=== PATIENT | female | born 1965 | race Caucasian/White ===

== ENCOUNTER 2017-10-30 16:31 | Outpatient (CLI) | payer BC ==
--- NOTE | 2017-10-30 17:22 | RAD ---
LEFT SHOULDER THREE VIEWS: 10/30/17 HISTORY: Shoulder pain. FINDINGS/IMPRESSION: Minimal arthritic changes of the AC joint. There is no acute findings. POS: [facility]
== END 2017-10-30 16:32 | disposition home or self-care (01) ==
LOC: SCSRAD 16:31
PROVIDERS: ATTEND Internal Medicine Cardiovascular Disease
DX: M19.012 Primary osteoarthritis, left shoulder (principal)